=== PATIENT | female | born 1995 | race Caucasian/White ===

== ENCOUNTER 2018-08-07 11:21 | Emergency (ER) | payer BC ==
[2018-08-07] MEDS ORDERED: predniSONE 20 MG TAB ONE (13:05)
[2018-08-07] MEDS ORDERED: diphenhydrAMINE 25 MG CAP ONE (13:05)
[2018-08-07] MEDS ORDERED: Famotidine 20 MG TAB ONE ×2 (13:05→13:09)
== END 2018-08-07 13:56 | disposition home or self-care (01) ==
LOC: ERS 11:21
DX: R21 Rash and other nonspecific skin eruption (principal); T36.95XA Adverse effect of unspecified systemic antibiotic, initial encounter; Z87.891 Personal history of nicotine dependence
CPT/HCPCS: 87081; 87430; 99283; Q0163